=== PATIENT | female | born 1965 | race Caucasian/White ===

== ENCOUNTER 2016-12-26 20:49 | Emergency (ER) | payer OTHER ==
--- NOTE | ~2016-12-26 | ER ---
PATIENT'S NAME: RADHA RUBI [facility] AGE: 51 Y [address] ROOM: [place] [id number] LOCATION: [facility] ADMIT DATE: 12/26/2016 ER/Outpatient Report DISCHARGE DATE: 12/26/2016 FAMILY PHYSICIAN: Rodrigo Simpson MD ATTENDING PHYSICIAN: Deng Edmondson Time of Arrival: 2048. Time of Evaluation: 2104. HISTORY OF PRESENT ILLNESS: This is a 51-year-old female. She was previously quite healthy. She is in with a complaint of shortness of breath and tingling of her hands and face that began this morning and has been persistent throughout the day. PAST MEDICAL HISTORY: Significant for hiatal hernia, gastroesophageal reflux disease, hypothyroidism. She is currently being considered for some weight loss medications, so she has a stress test scheduled for tomorrow morning. She has had no recent chest pain. MEDICATIONS: Currently are: 1. Effexor 150 mg daily. The Effexor was increased from 50 mg to 150 mg approximately 2 weeks ago. 2. Levothyroxine. SOCIAL HISTORY: She is . She is a nonsmoker. PHYSICAL EXAMINATION: GENERAL: Alert, anxious-appearing female, in no acute distress. VITAL SIGNS: Stable. She is hyperventilating. SKIN: Warm and dry. Color is normal. HEENT: Head, ears, eyes, nose, and throat revealed dry mouth, is otherwise normal. NECK: Supple. HEART: Had a regular rate and rhythm without murmur. LUNGS: Clear. Breath sounds are equal. ABDOMEN: Soft. EXTREMITIES: Normal. NEUROLOGIC: Normal. Oxygen saturation is 95%. DIAGNOSTIC STUDIES: CBC was unremarkable. Metabolic panel revealed mild hypokalemia. D-dimer was negative. Chest x-ray was negative by my interpretation. The radiologist's [facility] AGE: 51 Y [address] ROOM: [place] [id number] LOCATION: [facility] ADMIT DATE: 12/26/2016 ER/Outpatient Report DISCHARGE DATE: 12/26/2016 FAMILY PHYSICIAN: Rodrigo Simpson MD ATTENDING PHYSICIAN: Deng Edmondson interpretation is pending. EKG revealed normal sinus rhythm with no acute ST or T-wave changes. ASSESSMENT: 1. Anxiety and hyperventilation. 2. Mild hypokalemia. PLAN: Potassium supplement for 5 days. Follow up with her regular doctor tomorrow as previously arranged. DENG EDMONDSON MD JDB/modl /[id number] d: 12/27/16 0535 t: 12/27/16 1754, OUTPATIENT REPORT
[2016-12-26 21:18] LABS: BASOPHIL # 0.1 K/uL (0.0-0.2); BASOPHIL % 0.6 %; EOSINOPHIL # 0.2 K/uL (0.0-0.5); EOSINOPHIL % 1.9 %; HEMATOCRIT 42.9 % (33.0-46.0); HEMOGLOBIN 15.2 g/dL (10.0-15.0); IMMATURE GRANULOCYTE % 0.1 %; LYMPHOCYTE % 25.4 %; MCH 31.5 pg (27.0-34.0); MCHC 35.4 gm/dL (32.0-36.5); MCV 88.8 fl (83.0-98.0); MONOCYTE # 0.7 K/uL (0.0-1.0); MONOCYTE % 8.3 %; MPV 9.7 fl (9.4-12.4); NEUTROPHIL % 63.7 %; NRBC % 0 /100WBC (0-0.00); PLATELET COUNT 296 K/uL (150-450); RBC 4.83 M/uL (3.50-5.50); WBC 7.9 K/uL (4.0-11.0)
[2016-12-26 21:29] LABS: INR - (THERAPEUTIC) 0.99 (0.92-1.07); PROTIME 10.4 SECONDS (9.8-11.4); PTT 28 SECONDS (25-32)
[2016-12-26 21:37] LABS: ALBUMIN 4.2 gm/dL (3.5-5.0); ALK PHOS 145 IU/L (33-138); ALT 22 IU/L (12-78); ANION GAP 11.2 (10.0-19.0); AST 16 IU/L (10-40); BLOOD UREA NITROGEN 13 mg/dL (6-24); CALCIUM 9.4 mg/dL (8.5-10.5); CHLORIDE 111 mMol/L (96-110); CO2 24 mMol/L (22-32); CPK 51 IU/L (21-215); CREATININE 0.9 mg/dL (0.5-1.1); POTASSIUM 3.2 mMol/L (3.7-5.1); SODIUM 143 mMol/L (135-145); TOTAL BILIRUBIN 0.3 mg/dL (0.0-1.5); TOTAL PROTEIN 7.9 g/dL (6.0-8.4)
== END 2016-12-26 22:20 | disposition disaster alternative care site (69) ==
LOC: GMED 20:49
PROVIDERS: Emergency Medicine
DX: F41.9 Anxiety disorder, unspecified (principal); E87.6 Hypokalemia; K21.9 Gastro-esophageal reflux disease without esophagitis; E03.9 Hypothyroidism, unspecified; Z79.899 Other long term (current) drug therapy; Z98.890 Other specified postprocedural states